=== PATIENT | female | born 1935 | race Caucasian/White ===

== ENCOUNTER → 2018-01-21 | Outpatient (CLI) | payer MEDICARE, OTHER ==
[~2018-01-21] MED LIST: ALBU90OI61 INH; ANORO ELLIPTA1 EACH INH; ASPI81CH PO; ATOR20 PO; AZELASTINE137 MCG/0.; AZELASTINE137 MCG/0. NS; CEPH500 PO; Cipro500 MG PO; ESTRTP VAG; FLUO20; GLIM4; GLIM4 PO; HYDR1TAB94 PO; Hydromet Syrup473 ML; INSULANI SUBQ; INSULANPEN SC; LORA.5 PO; LOSA25 PO; LOVA40; LOVA40 PO; METF500; METF500 PO; METO100ER PO; METO25ER PO; METO50ER; MYRBETRIQ25 MG PO; MYRBETRIQ50 MG PO; NITR100 PO; OXYB5 PO; PANT40 PO; PIOG15 PO; PRED10 PO; Prednisone20 MG PO; Prinivil10 MG PO; QVAR7.3 G1 INH; SULTRIDS PO; TRESIBA FL200 UNIT/1 SC; TRIHYD253A PO; ZOLP10; ZOLP10 PO
== END | disposition home or self-care (01) ==
LOC: LAB 12:00
DX: N39.0 Urinary tract infection, site not specified (principal)
CPT/HCPCS: 87077; 87086; 87186

== ENCOUNTER 2018-12-01 16:28 | Inpatient (IN) | payer MEDICARE, OTHER ==
[~2018-12-01] VITALS: Ht 157.5 cm; Wt 64.5 kg
[~2018-12-01 16:28] MED LIST changes: -LOVA40 PO; +Lovastatin20 MG PO
[2018-12-01 17:47] LABS: BASOPHILS ABSOLUTE AUTO 0.06 K/mm3 (0.00-0.23); BASOPHILS PERCENT AUTO 0 % (0-2); EOSINOPHILS ABSOLUTE AUTO 0.11 K/mm3 (0.00-0.68); EOSINOPHILS PERCENT AUTO 1 % (0-6); Hematocrit 18.8 % (33.0-51.0); IMMATURE GRAN ABSOLUTE AUTO 0.27 K/mm3 (0.00-0.10); IMMATURE GRAN PERCENT AUTO 1 % (0-1); LYMPHOCYTES ABSOLUTE AUTO 2.58 K/mm3 (0.84-5.20); LYMPHOCYTES PERCENT AUTO 13 % (21-46); MONOCYTES PERCENT AUTO 6 % (4-13); Mean Corpuscular HGB 31.5 pg (26.0-34.0); Mean Corpuscular HGB Conc 29.8 g/dL (31.5-36.5); Mean Corpuscular Volume 106 fL (80-100); Mean Platelet Volume 10.4 fL (9.1-12.4); NEUTROPHILS ABSOLUTE AUTO 15.45 K/mm3 (1.96-9.15); NEUTROPHILS PERCENT AUTO 79 % (41-73); NRBC ABSOLUTE 0.06 K/mm3 (0.00-0.02); NRBC Auto 0.3 /100 WBC (0.0-0.2); Platelet Count 265 K/mm3 (150-400); RDW Standard Deviation 54.2 fL (35.1-46.3); Red Blood Cell Count 1.78 M/mm3 (3.80-5.20); White Blood Cell Count 19.67 K/mm3 (4.00-11.30)
[2018-12-01 17:50] LABS: Hemoglobin 5.6 g/dL (11.5-16.0)
[2018-12-01 18:17] LABS: Albumin, Blood 3.4 g/dL (3.4-5.0); Albumin/Globulin Ratio 0.9 (0.8-1.8); Bilirubin, Total 0.3 mg/dL (0.1-1.0); Bun/Creatinine Ratio 42.1 (12.0-20.0); Calcium, Blood 8.5 mg/dL (8.5-10.1); Creatinine, Blood 0.97 mg/dL (0.40-1.00); Globulin, Blood 3.6 g/dL (2.2-4.0); Potassium, Blood 4.6 mmol/L (3.5-5.5)
[2018-12-01 18:42] LABS: Influenza A Negative (NEGATIVE); Influenza B Negative (NEGATIVE)
[2018-12-01 18:57] LABS: International Normalized Ratio 1.19; Prothrombin Time Results 12.4 Sec (9.7-11.5)
[2018-12-01] MEDS ORDERED: Glucophage Xr750 MG PO (19:51)
[2018-12-01] MEDS ORDERED: METO50ER PO (19:53)
[2018-12-01] MEDS ORDERED: MEMA10 PO (19:57)
[2018-12-01] MEDS ORDERED: ANORO ELLIPTA1 EACH INH (20:00)
[2018-12-01] MEDS ORDERED: ZOLP10 PO (20:04)
[2018-12-01] MEDS ORDERED: Pantoprazole So40 MG PO (20:04)
--- NOTE | 2018-12-01 21:05 | NUR ---
ADMIT PT ARRIVES FROM ER WITH VANCO AND FIRST UNIT OF PRBC'S INFUSING. PT IS ALERT TO ALL BUT DATE BUT IS VERY FORGETFUL AND REPEATS QUESTIONS. A SMALL AMOUNT OF BLACK TARRY STOOL NOTED IN ATTENDS. PER MEASURER, ST DEPRESSION NOTED ON ECG, DR MERAZ AWARE-THIS REMAINS ON ECG IN LEADS II, III AND AVF. PT DENIES ANY PAIN AND ONLY COMPLAINT IS OF THIRST. SBP IN THE 90'S, MAP >60 AND O2 SATS 100% ON 4L/NC DROPPED TO 1L. PLAN TO TRANSFUSE #2 PRBC AND INITIATE ADMIT ORDERS. PT WILL BE NPO AT MIDNIGHT FOR UPPER ENDOSCOPY TOMORROW WITH DR LEI.
[2018-12-01 23:33] LABS: Source, Urine Catheter
[2018-12-01 23:37] LABS: Bilirubin, Urine Neg (Neg); Blood, Urine 1+ (Neg); Glucose Qualitative, Urine Neg (Neg); Ketones, Urine 1+ (Neg); Leukocyte Esterase, Urine 2+ (Neg); Nitrite, Urine Pos (Neg); Protein, Urine 1+ (Neg); Urobilinogen, Urine NORM (Normal)
[2018-12-01 23:40] LABS: Appearance, Urine Clear (Clear); Color, Urine Yellow (P-Yellow)
[2018-12-01 23:44] LABS: Amorphous Light ({null, 0-Heavy}); Bacteria Mod /hpf; Red Blood Cells, Urine 0-2 /hpf (0-2); Squamous Epithelial Cells Not Seen /hpf (Few); White Blood Cells, Urine 25-50 /hpf (0-5)
[2018-12-02 03:40] LABS: BASOPHILS ABSOLUTE AUTO 0.04 K/mm3 (0.00-0.23); BASOPHILS PERCENT AUTO 0 % (0-2); EOSINOPHILS ABSOLUTE AUTO 0.02 K/mm3 (0.00-0.68); EOSINOPHILS PERCENT AUTO 0 % (0-6); Hematocrit 21.7 % (33.0-51.0); Hemoglobin 7.1 g/dL (11.5-16.0); IMMATURE GRAN ABSOLUTE AUTO 0.15 K/mm3 (0.00-0.10); IMMATURE GRAN PERCENT AUTO 1 % (0-1); LYMPHOCYTES ABSOLUTE AUTO 1.97 K/mm3 (0.84-5.20); LYMPHOCYTES PERCENT AUTO 14 % (21-46); MONOCYTES ABSOLUTE AUTO 1.51 K/mm3 (0.16-1.47); MONOCYTES PERCENT AUTO 11 % (4-13); Mean Corpuscular HGB 29.3 pg (26.0-34.0); Mean Corpuscular HGB Conc 32.7 g/dL (31.5-36.5); Mean Platelet Volume 9.8 fL (9.1-12.4); NEUTROPHILS PERCENT AUTO 74 % (41-73); NRBC ABSOLUTE 0.03 K/mm3 (0.00-0.02); NRBC Auto 0.2 /100 WBC (0.0-0.2); Platelet Count 192 K/mm3 (150-400); RDW Coefficient Variation 17.6 % (11.7-14.2); RDW Standard Deviation 52.1 fL (35.1-46.3); Red Blood Cell Count 2.42 M/mm3 (3.80-5.20); White Blood Cell Count 14.29 K/mm3 (4.00-11.30)
[2018-12-02 03:41] LABS: Mean Corpuscular Volume 90 fL (80-100)
[2018-12-02 04:01] LABS: Alanine Aminotransfer (ALT/SGP 12 U/L (12-78); Albumin, Blood 2.7 g/dL (3.4-5.0); Alk Phos 36 U/L (50-136); Anion Gap 8 mmol/L (6-16); Aspartate Aminotrans (AST/SGOT 14 U/L (12-37); Bilirubin, Total 1.1 mg/dL (0.1-1.0); Blood Urea Nitrogen 38 mg/dL (8-24); Bun/Creatinine Ratio 37.6 (12.0-20.0); CO2, Blood 25 mmol/L (21-32); Calcium, Blood 7.7 mg/dL (8.5-10.1); Chloride, Blood 108 mmol/L (98-108); Creatinine, Blood 1.01 mg/dL (0.40-1.00); Globulin, Blood 2.6 g/dL (2.2-4.0); Glomerular Filtration Rate 56 (60-); Glucose, Blood 176 mg/dL (70-99); Potassium, Blood 4.1 mmol/L (3.5-5.5); Sodium, Blood 141 mmol/L (136-145); Total Protein, Blood 5.3 g/dL (6.4-8.2); Vancomycin, Random 8.9 ug/mL
--- NOTE | 2018-12-02 04:54 | NUR ---
CALL TO DR RG LEMUS MD ON AM HGB/HCT AND CURRENT VITALS AND UOP. PER DR MERAZ, NO ADDITION BLOOD PRODUCTS AT THIS TIME D/T HX AORTIC STENOSIS AND ORDER OBTAINED TO RUN NS AT 100ML/HR INSTEAD OF 200ML/HR.
--- NOTE | 2018-12-02 06:22 | NUR ---
SHIFT SUMMARY NO ACUTE CHANGES OVERNIGHT. PT REMAINS ALERT TO SELF, LOCATION AND DATE BUT HAS POOR SHORT TERM MEMORY AND WILL REPEAT QUESTIONS. PT DENIES ALL COMPLAINTS AND REPORTS SHE FEELS MUCH BETTER NOW AND IS BEGINNING TO REMEBER SOME EVENTS LEADING UP TO ADMISSION. PROTONIX GTT AT 10ML/HR AND NS AT 100ML/HR. PT HAS HAD TWO SMALL BLACK/TARRY STOOLS FOR SHIFT. VSS, MAP'S 65-75 AND UOP AT 850ML FOR SHIFT. ECG REMAINS SINUS TACH AT 110. NPO STATUS HAS BEEN MAINTAINED SINCE 0000 D/T UNKNOWN EGD TIME LATER TODAY.
--- NOTE | 2018-12-02 08:33 | NUR ---
CARE ASSUMED CARE AND REPORT ASSUMED FROM DYLAN Miller RN. PT SLEEPING BUT EASILY AROUSABLE. DENIES PAIN AND NAUSEA AT THIS TIME. ATTENDS SECURED AND LOVE CATH SECURED AND PATENT. SIT, HR 100-120. MAP 60-65 AT THIS TIME. PT HAS INSPIRATORY AND EXP WHEEZES IN ALL LUNG GMABOA. BALJEET AWARE OF LUNG SOUNDS AND VS. MIV INFUSING AT 100 ML/HR AND IS TO CONTINUE. PROTONIX GTT INFUSING AT 10 ML/HR PER ORDER. PT TO RECIEVE ANOTHER UNIT PRBCS, TOTALING 3 UNITS. AFEBRILE. SPO2 96% ON RA; NO SIGNS OF RESP DISTRESS. PT TURNS SELF IN BED. NPO AT THIS TIME EXCEPT FEW SIPS WATER. WILL CONTINUE TO MONITOR.
--- NOTE | 2018-12-02 11:43 | NUR ---
REASSESSMENT PT RECEIVED 1 UNIT PRBCS SINCE PRIOR ASSESSMENT. WORKED WITH PT AND WAS ABLE TO AMBUALTE AROUND ROOM WITH WALKER. SINUSTACH, HR 100-120. BP STABLE. AFEBRILE. NS INFUSING AT 100 ML/HR PER ORDER. PROTONIX GTT INFUSING AT 10 ML/HR PER ORDER. DENIES PAIN AND NAUSEA AT THIS TIME. DAUGHTER AND BEDSIDE; FAMILY UPDATED ON PTS CURRENT TREATMENT PLAN AND PLAN FOR EGD AT 1230. RERE CONTINUE TO MONITOR.
[2018-12-02 12:43] LABS: BASOPHILS ABSOLUTE AUTO 0.09 K/mm3 (0.00-0.23); BASOPHILS PERCENT AUTO 1 % (0-2); EOSINOPHILS ABSOLUTE AUTO 0.13 K/mm3 (0.00-0.68); EOSINOPHILS PERCENT AUTO 1 % (0-6); Hematocrit 23.7 % (33.0-51.0); Hemoglobin 7.9 g/dL (11.5-16.0); IMMATURE GRAN ABSOLUTE AUTO 0.13 K/mm3 (0.00-0.10); IMMATURE GRAN PERCENT AUTO 1 % (0-1); LYMPHOCYTES ABSOLUTE AUTO 1.69 K/mm3 (0.84-5.20); LYMPHOCYTES PERCENT AUTO 14 % (21-46); MONOCYTES ABSOLUTE AUTO 1.17 K/mm3 (0.16-1.47); MONOCYTES PERCENT AUTO 10 % (4-13); Mean Corpuscular HGB 30.2 pg (26.0-34.0); Mean Corpuscular HGB Conc 33.3 g/dL (31.5-36.5); Mean Corpuscular Volume 91 fL (80-100); Mean Platelet Volume 9.6 fL (9.1-12.4); NEUTROPHILS ABSOLUTE AUTO 9.05 K/mm3 (1.96-9.15); NEUTROPHILS PERCENT AUTO 74 % (41-73); NRBC ABSOLUTE 0.04 K/mm3 (0.00-0.02); NRBC Auto 0.3 /100 WBC (0.0-0.2); Platelet Count 193 K/mm3 (150-400); RDW Coefficient Variation 17.6 % (11.7-14.2); RDW Standard Deviation 52.2 fL (35.1-46.3); Red Blood Cell Count 2.62 M/mm3 (3.80-5.20); White Blood Cell Count 12.26 K/mm3 (4.00-11.30)
--- NOTE | 2018-12-02 13:01 | NUR ---
12/02/18 1301 Joslyn Gillespie MAC CASE WITH DR. CATES IN ICU 10.SEE ANETHESIA RECORED FOR CARE.
--- NOTE | 2018-12-02 16:25 | NUR ---
REASSESSMENT PT A/O X3 WITH SOME SHORT TERM MEMORY LOSS. VSS. SIT, HR 100-110. DENIES PAIN. PT HAD BLACK, TARRY STOOL IN BRIEF; INCONTINENT. RECEIVED BEDBATH, LINEN CHANGE, BREIF CHANGE AND SKIN CARE. LOVE CARE REMAINS SECURED AND PATENT. PT ABLE TO STAND AT BEDSIDE AND AMBULATE IN ROOM IF NEEDED. REFUSED TO WEAR SCDS AT THIS TIME; WILL GIVE A BREAK. LUNG SOUNDS WHEEZY THROUGHOUT. PT TOLERATING CLEAR LIQUIDS WITH NO NAUSEA. WILL CONTINUE TO MONITOR.
--- NOTE | 2018-12-02 17:53 | NUR ---
SHIFT SUMMARY PT HAD BUSY DAY. WORKED WITH PT AND OT AND WAS COOPERATIVE AND NEEDED MINIMAL ASSIST. UPPER ENDOSCOPY COMPLETED AT 1300 AND PT TOELRATED WELL. FAMILY BEDSIDE MIDDAY. PT RECEIVED BEDBATH AND LINEN CHANGE IN AFTERNOON. NO NAP THROUGHOUT SHIFT. SINUSTACH, HR 100-115 ENITRE SHIFT WITH STABLE BP. AFEBRILE ENTIRE SHIFT. PROTONIX GTT INFUSED AT 10 ML/HR PER ORDER. 1 INCONTINENT BRIEF WITH BLACK TARRY STOOL. WILL GIVE BEDSIDE, HANDOFF REPORT TO STEPHEN RN.
--- NOTE | 2018-12-02 19:49 | NUR ---
ASSUMED CARE PT SITTING UP IN BED WATCHING TV WITH ONLY COMPLAINT OF FEELING HUNGRY. PT S/P EGD TODAY WITH CLIP-CLEAR LIQUID DIET TONIGHT. PT IS ALERT TO SELF, LOCATION AND YEAR BUT HAS POOR SHORT TERM MEMORY. PROTONIX GTT CONTINUES AT 10ML/HR AND NS TKO.
[2018-12-02 20:17] LABS: Hematocrit 23.1 % (33.0-51.0); Hemoglobin 7.7 g/dL (11.5-16.0)
[2018-12-03 03:43] LABS: BASOPHILS ABSOLUTE AUTO 0.04 K/mm3 (0.00-0.23); BASOPHILS PERCENT AUTO 0 % (0-2); EOSINOPHILS ABSOLUTE AUTO 0.16 K/mm3 (0.00-0.68); EOSINOPHILS PERCENT AUTO 1 % (0-6); Hematocrit 21.3 % (33.0-51.0); IMMATURE GRAN ABSOLUTE AUTO 0.09 K/mm3 (0.00-0.10); IMMATURE GRAN PERCENT AUTO 1 % (0-1); LYMPHOCYTES ABSOLUTE AUTO 1.31 K/mm3 (0.84-5.20); LYMPHOCYTES PERCENT AUTO 12 % (21-46); MONOCYTES ABSOLUTE AUTO 1.12 K/mm3 (0.16-1.47); MONOCYTES PERCENT AUTO 10 % (4-13); Mean Corpuscular HGB 30.2 pg (26.0-34.0); Mean Corpuscular HGB Conc 32.9 g/dL (31.5-36.5); Mean Corpuscular Volume 92 fL (80-100); Mean Platelet Volume 9.7 fL (9.1-12.4); NEUTROPHILS PERCENT AUTO 76 % (41-73); NRBC ABSOLUTE 0.03 K/mm3 (0.00-0.02); NRBC Auto 0.3 /100 WBC (0.0-0.2); Platelet Count 168 K/mm3 (150-400); RDW Coefficient Variation 18.2 % (11.7-14.2); RDW Standard Deviation 53.1 fL (35.1-46.3); Red Blood Cell Count 2.32 M/mm3 (3.80-5.20); White Blood Cell Count 11.42 K/mm3 (4.00-11.30)
[2018-12-03 04:04] LABS: Albumin, Blood 2.7 g/dL (3.4-5.0); Anion Gap 7 mmol/L (6-16); Blood Urea Nitrogen 22 mg/dL (8-24); Bun/Creatinine Ratio 24.6 (12.0-20.0); CO2, Blood 26 mmol/L (21-32); Calcium, Blood 7.6 mg/dL (8.5-10.1); Chloride, Blood 109 mmol/L (98-108); Glomerular Filtration Rate >60 (60-); Glucose, Blood 155 mg/dL (70-99); Potassium, Blood 3.4 mmol/L (3.5-5.5); Sodium, Blood 142 mmol/L (136-145); Vancomycin, Random 6.8 ug/mL
--- NOTE | 2018-12-03 06:00 | NUR ---
CALL TO DR KT HIRSCH UPDATED ON AM HGB AND DOWNWARD TREND, VS AND NUMBER OF TARRY STOOLS. PER DR MERAZ OK PASS ON TO AM RN AND THEN TO DR DELONG THIS AM. ORDER OBTAINED TO RECHECK H&H AT 1100.
--- NOTE | 2018-12-03 06:19 | NUR ---
SHIFT SUMMARY SEE PREVIOUS NOTES FOR SHIFT. PT WAS ANXIOUS YESTERDAY PM BUT REPORTS SHE IS NO LONGER ANXIOUS AFTER SHE HAS BEEN ABLE TO SLEEP. PT HAS HAD ONE MEDIUM AND ONE SMEAR OF BLACK TARRY STOOL FOR SHIFT. LUNG SOUNDS HAVE REMAINED WHEEZ T/O SHIFT BUT NO RALES; O2 VIA NC APPLIED AT HS FOR DESATURATIONS AT 1/NC BUT HAS BEEN OFF SINCE 0300 D/T O2 SATS >98%. PROTONIX AT 10ML/HR AND NS TKO ON STANDBY. PLAN TO REPORT OFF AM HGB TO AM RN SO AM HOSPITALIST CAN MAKE DETERMINATION IF PT REQUIRES ADDITIONAL BLOOD PRODUCTS.
--- NOTE | 2018-12-03 08:15 | NUR ---
CARE ASSUMED PT SLEEPING BUT EASILY AROUSABLE. WHEN AWAKENED FOR ASSESSMENT, PT STATES SHE WANTS TO SLEEP. DENIES PAIN AT THIS TIME. VSS. AFEBRILE. SIT, HR 105-115. TURNS SELF IN BED. STARTING POTASSIUM REPLACEMENT INFUSION BUT PT C/O BURNING AND REFUSED TO CONTINUE INFUSION EVEN WITH NS DILUTION. BALJEET AWARE AND V.O. TO DISCUSS ORAL REPLACEMENT WITH MD LEI. DENIES NAUSEA. ATE FEW BITES OF BREAKFAST AND IS NOW BACK TO SLEEP. LUNG SOUNDS WHEEZY THROUGHOUT. WILL CONTINUE TO MONITOR.
--- NOTE | 2018-12-03 11:57 | NUR ---
REASSESSMENT PT RECEIVED BEDBATH AND LINEN CHANGE. TOLERATED OT THIS AM. BEDSIDE AND UPDATED ON PT STATUS AND TREATMENT PLAN. VSS. BP WNL. SPO2 96% ON RA BUT LUNG SOUNDS REMAIN WHEEZY THROUGHOUT. PT RECIEVING 1/2 UNITS PRBCS AT THIS TIME. CONTINUALLY STATING SHE IS HUNGRY. DENIES NAUSEA AND NO EPISODES OF VOMITING. WILL CONTINUE TO MONITOR.
[2018-12-03 15:06] LABS: Hematocrit 29.7 % (33.0-51.0); Hemoglobin 9.9 g/dL (11.5-16.0)
--- NOTE | 2018-12-03 18:37 | NUR ---
SHIFT SUMMARY PT RECEIVED 2 UNITS PRBCS WITH IMPROVEMENT IN HGB. DENIED PAIN DURING SHIFT. SINUSTACH, HR 100-120 ENTIRE SHIFT WITH STABLE BP. AFEBRILE. PT UP TO TOILET MULTIPLE TIMES WITH MINIMAL ASSIST. WORKED WITH PT AND OT DURING SHIFT. PT BECOMES SHORT OF BREATH VERY EASILY. AT ONE POINT DURING AFTERNOON, PT BECAME AGITATED AND RESTLESS, ATEMPTING TO GET OUT OF BED AND STATING SHE WAS MISERABLE BUT COULD NOT CONCLUDE A SPECIFIC PROBLEM. ATIVAN ORDER OBTAINED FROM MD BUT NOT GIVEN AT THIS TIME. HAD 4-5 SMEARED BREIFS OF INCONTINENT BLACK, TARRY STOOL. WILL GIVE BEDSIDE, HANDOFF REPORT TO NOC RN.
--- NOTE | 2018-12-03 19:30 | NUR ---
ASSUMED CARE PT SITTING UPRIGHT IN BED, STATING "I'M JUST MISERABLE," BUT CANNOT ELABORATE TO WHY SHE IS FEELING MISERABLE. DENIES ALL PAIN BUT IS REPORTING HUNGER. FULL LIQUID SNACK GIVEN, BACK RUBBED AND PT REPOSITIONED. PROTONIX CONTINUES AT 10ML/HR AND PT HAS CONTINUED TO HAVE FREQUENT SMALL AMOUNTS OF MELENA FOR DAY SHIFT. ECG SHOWS ST 110-120, O2 SATS 95% ON RA. PLAN TO OFFER PM CARE AND PROMOTE SLEEP OVERNIGHT.
[2018-12-04 03:33] LABS: BASOPHILS ABSOLUTE AUTO 0.05 K/mm3 (0.00-0.23); BASOPHILS PERCENT AUTO 1 % (0-2); EOSINOPHILS ABSOLUTE AUTO 0.18 K/mm3 (0.00-0.68); EOSINOPHILS PERCENT AUTO 2 % (0-6); Hematocrit 29.4 % (33.0-51.0); Hemoglobin 9.8 g/dL (11.5-16.0); IMMATURE GRAN ABSOLUTE AUTO 0.05 K/mm3 (0.00-0.10); IMMATURE GRAN PERCENT AUTO 1 % (0-1); LYMPHOCYTES PERCENT AUTO 10 % (21-46); MONOCYTES ABSOLUTE AUTO 1.18 K/mm3 (0.16-1.47); MONOCYTES PERCENT AUTO 11 % (4-13); Mean Corpuscular HGB 30.9 pg (26.0-34.0); Mean Corpuscular HGB Conc 33.3 g/dL (31.5-36.5); Mean Corpuscular Volume 93 fL (80-100); Mean Platelet Volume 9.5 fL (9.1-12.4); NEUTROPHILS ABSOLUTE AUTO 8.24 K/mm3 (1.96-9.15); NEUTROPHILS PERCENT AUTO 76 % (41-73); NRBC ABSOLUTE 0.03 K/mm3 (0.00-0.02); NRBC Auto 0.3 /100 WBC (0.0-0.2); Platelet Count 168 K/mm3 (150-400); RDW Coefficient Variation 17.9 % (11.7-14.2); RDW Standard Deviation 51.6 fL (35.1-46.3); Red Blood Cell Count 3.17 M/mm3 (3.80-5.20)
[2018-12-04 03:50] LABS: Albumin, Blood 2.8 g/dL (3.4-5.0); Anion Gap 8 mmol/L (6-16); Blood Urea Nitrogen 10 mg/dL (8-24); Bun/Creatinine Ratio 11.7 (12.0-20.0); CO2, Blood 26 mmol/L (21-32); Calcium, Blood 7.9 mg/dL (8.5-10.1); Chloride, Blood 107 mmol/L (98-108); Creatinine, Blood 0.85 mg/dL (0.40-1.00); Glomerular Filtration Rate >60 (60-); Glucose, Blood 235 mg/dL (70-99); Phosphorus, Blood 3.2 mg/dL (2.5-4.9); Potassium, Blood 3.7 mmol/L (3.5-5.5); Sodium, Blood 141 mmol/L (136-145)
[2018-12-04] MEDS ORDERED: QVAR REDIHALE10.6 G1 INH (05:06)
[2018-12-04] MEDS ORDERED: ANORO ELLIPTA1 EACH INH (05:07)
[2018-12-04] MEDS ORDERED: Novolog100 UNIT/2 SC (05:09)
[2018-12-04] MEDS ORDERED: DICLO GEL1 EACH TOP (05:12)
--- NOTE | 2018-12-04 06:34 | NUR ---
SHIFT SUMMARY NO ACUTE EVENTS OVERNIGHT. PT HAD ONE SMALL SMEAR OF DARK, TARRY STOOLS THIS SHIFT AND AM H&H STABLE. PT WAS ANXIOUS LAST NIGHT AND DID NOT FALL ASLEEP UNTIL O300 BUT DOES WAKE UP AND CALL OUT FOR HELP TO GET UP TO BATHROOM. PROTONIX AT 10ML/HR, VSS, WITH OCCASIONAL O2 SAT DROPS WITH SLEEP BUT DROPS ARE VERY SHORT LIVED. VSS, EKG SHOWS ST 100-120.
--- NOTE | 2018-12-04 08:15 | NUR ---
ASSESSMENT- PT AWAKENED TO NAME. ORIENTED, COOPERATIVE, ANSWERS QUESTIONS APPROPRIATELY. STANDBY ASSIST TO TOILET WITHOUT PROBLEMS. VSS. NO S/S BLEEDING. NO N/S. TAKING FULL LIQUIDS. BLODD SUGAR ELEVATED, COVERAGE GIVEN. DR. DELONG HERE-ASSESSED PT. PT DENIES ANY PAIN. SITTING UP AT EDGE OF BED EATING. REVIEWED FALL PRECAUTIONS, STATES UNDERSTANDING. PROTONIX GTT AT 10 CC/HR. PIV X 2 INTACT.
--- NOTE | 2018-12-04 11:00 | NUR ---
PT TO TRANSFER TO [facility]. REPORT GIVEN. PROTONIX GTT D/C. PT DENIES COMPLAINTS. UPDATE TO PT FAMILY. NO S/S BLEEING.
[2018-12-04 13:26] LABS: Hematocrit 33.5 % (33.0-51.0); Hemoglobin 10.9 g/dL (11.5-16.0)
--- NOTE | 2018-12-04 17:59 | NUR ---
SHIFT SUMMARY PT WAS ICU XFER THIS SHIFT, NO ACUTE CHANGES SINCE ASSUMING CARE, NO COMPLAINTS OF ANY KIND. FAMILY SPENT MOST OF AFTERNOON AT BEDSIDE, PATIENT SEEMED MORE CONFUSED AFTER SPOUSE LEFT FOR THE NIGHT. BED ALARM IS ON, PT EATING DINNER AT THIS TIME, WILL CONT TO MONITOR UNTIL REPORT GIVEN TO NOC RN.
--- NOTE | 2018-12-04 20:17 | NUR ---
PATIENT ACTIVATED BED ALARM X TWO. PATIENT REMINDED TO USE CALL LIGHT AND REPORTS. SHE FORGOT. PATIENT EDUCATED MASONRY SUPERVISOR LIGHT AND BACK INTO BED. CALL LIGHT IN REACH.
--- NOTE | 2018-12-04 20:18 | NUR ---
PATIENT DID NOT USE BATHROOM CALL LIGHT WHEN ASKED. PATIENT AGAIN REPORTS SHE FORGOT TO USE IT WHEN ASKED. PATIENT BACK INTO BED. RT PRESENT FOR A BREATHING TX. CALL LIGHT IN REACH. BED ALARM ACTIVATED.
--- NOTE | 2018-12-04 20:21 | NUR ---
RT REPORTS WILL PUT PATIENT ON 2L O2 NC AND WAS STATING 83% WHEN BACK FROM BATH ROOM. RT WILL ADJUST NEEDED. CALL LIGHT IN REACH.
--- NOTE | 2018-12-05 04:08 | NUR ---
SHIFT SUMMARY PATIENT HAD NO ACUTE CHANGES OBSERVED THIS SHIFT. RT PUT PATIENT ON 2L O2 NC AFTER DESTATING BACK FROM BATHROOM WITH RT IN ROOM. PATIENT IS AXOX 3 WITH HX ALZHEIMER. POOR SHORT TERM MEMORY. PATIENT ACTIVATED BED ALARM X 4 AND DID NOT REMEMBER BEING TOLD TO USE CALL LIGHT SYSTEM. PATIENT ANXIOUS AND REPORTED WANTING TO GO HOME. REPORTED HEADACHE AND NEEDING A MED FOR SLEEP. TYLENOL AND MELATONIN GIVEN PER EMAR. PATIENT TOMPKINS REDUCED AND ABLE TO SLEEP. CBG 251. TWO PIV REMAIN INTACT. [employer] REPAIR TEACHER REPORTS ST 116. VSS/AFEBRILE. DENIES SOB AND N/V. CALL LIGHT IN REACH. BED IN LOWEST POSITION. WILL CONTINUE TO MONITOR UNTIL DAY SHIFT NURSE ASSUMES CARE.
[2018-12-05 05:28] LABS: BASOPHILS ABSOLUTE AUTO 0.05 K/mm3 (0.00-0.23); BASOPHILS PERCENT AUTO 1 % (0-2); EOSINOPHILS ABSOLUTE AUTO 0.22 K/mm3 (0.00-0.68); EOSINOPHILS PERCENT AUTO 2 % (0-6); Hematocrit 32.2 % (33.0-51.0); Hemoglobin 10.3 g/dL (11.5-16.0); IMMATURE GRAN ABSOLUTE AUTO 0.04 K/mm3 (0.00-0.10); IMMATURE GRAN PERCENT AUTO 0 % (0-1); LYMPHOCYTES ABSOLUTE AUTO 0.97 K/mm3 (0.84-5.20); LYMPHOCYTES PERCENT AUTO 10 % (21-46); MONOCYTES ABSOLUTE AUTO 0.96 K/mm3 (0.16-1.47); MONOCYTES PERCENT AUTO 10 % (4-13); Mean Corpuscular Volume 94 fL (80-100); Mean Platelet Volume 9.6 fL (9.1-12.4); NEUTROPHILS ABSOLUTE AUTO 7.53 K/mm3 (1.96-9.15); NEUTROPHILS PERCENT AUTO 77 % (41-73); Platelet Count 186 K/mm3 (150-400); RDW Coefficient Variation 18.7 % (11.7-14.2); RDW Standard Deviation 53.9 fL (35.1-46.3); Red Blood Cell Count 3.43 M/mm3 (3.80-5.20); White Blood Cell Count 9.77 K/mm3 (4.00-11.30)
[2018-12-05 05:57] LABS: Albumin, Blood 2.8 g/dL (3.4-5.0); Anion Gap 8 mmol/L (6-16); Blood Urea Nitrogen 12 mg/dL (8-24); Bun/Creatinine Ratio 12.9 (12.0-20.0); CO2, Blood 27 mmol/L (21-32); Calcium, Blood 8.4 mg/dL (8.5-10.1); Chloride, Blood 107 mmol/L (98-108); Creatinine, Blood 0.93 mg/dL (0.40-1.00); Glomerular Filtration Rate >60 (60-); Glucose, Blood 173 mg/dL (70-99); Phosphorus, Blood 3.7 mg/dL (2.5-4.9); Potassium, Blood 3.5 mmol/L (3.5-5.5); Sodium, Blood 142 mmol/L (136-145)
--- NOTE | 2018-12-05 06:28 | NUR ---
PATIENT NOW USING CALL LIGHT OVER 80% OF TIME. SHE WAS NON-COMPLIANT FIRST HALF OF SHIFT. BED ALARM STILL ACTIVATED. WILL CONTINUE TO MONITOR.
[2018-12-05] MEDS ORDERED: MELA3 PO (15:56)
[2018-12-05] MEDS ORDERED: MEMA10 PO (15:57)
[2018-12-05] MEDS ORDERED: ALBU2.5V5 NEB (17:13)
--- NOTE | 2018-12-05 17:42 | NUR ---
1730 PT DISCHARGED HOME VIA PERSONAL VEHICLE ACCOMPANIED AND DRIVEN BY . PT ESCORTED TO FACILITY ENTRANCE BY THIS RN VIA W/C. IV'S REMOVED. D/C PAPERWORK REVIEWED WITH PT AND SPOUSE, THEY ACKNOWLEDGED UNDERSTANDING. NEW RX FAXED TO [facility] ON [address] PER PT REQUEST. NO NEW CHANGES.
== END 2018-12-05 17:33 | disposition home or self-care (01) | DRG 377 ==
LOC: ER 16:28 → ICUW 20:01 → MEDS 12-04 11:03
PROVIDERS: Emergency Medicine; Family Medicine; Hospitalist; Internal Medicine Gastroenterology; Physician Assistant; ADMIT Internal Medicine
PROC: 30233N1 Transfusion of Nonautologous Red Blood Cells into Peripheral Vein, Percutaneous Approach (ICD-10-PCS; 2018-12-02)
PROC: 0W3P8ZZ Control Bleeding in Gastrointestinal Tract, Via Natural or Artificial Opening Endoscopic (ICD-10-PCS; principal; 2018-12-02 12:30)
DX: K31.811 Angiodysplasia of stomach and duodenum with bleeding (principal); R57.8 Other shock; E87.1 Hypo-osmolality and hyponatremia; D62 Acute posthemorrhagic anemia; J44.1 Chronic obstructive pulmonary disease with (acute) exacerbation; Z85.118 Personal history of other malignant neoplasm of bronchus and lung; Z79.4 Long term (current) use of insulin; I48.0 Paroxysmal atrial fibrillation; G47.00 Insomnia, unspecified; I35.0 Nonrheumatic aortic (valve) stenosis; N18.3 Chronic kidney disease, stage 3 (moderate); E86.0 Dehydration; E11.22 Type 2 diabetes mellitus with diabetic chronic kidney disease; E87.6 Hypokalemia; F17.210 Nicotine dependence, cigarettes, uncomplicated; G30.9 Alzheimer's disease, unspecified; F02.80 Dementia in other diseases classified elsewhere, unspecified severity, without behavioral disturbance, psychotic disturbance, mood disturbance, and anxiety; I12.9 Hypertensive chronic kidney disease with stage 1 through stage 4 chronic kidney disease, or unspecified chronic kidney disease
CPT/HCPCS: 36415; 36430; 51702; 71046; 76705; 80053; 80069; 80202; 81001; 82947; 83605; 84145; 85014; 85018; 85025; 85610; 86850; 86900; 86901; 86923; 87040; 87086; 87804; 93005; 93010; 94640; 94760; 94761; 96361; 96365; 96366; 96367; 96375; 97110; 97162; 97165; 97530; 97535; 99285-25; C9113; J0692; J0713; J3370; J3480; J7030; J7050; J7120; P9016

== ENCOUNTER 2019-02-14 10:27 | Inpatient (IN) | payer MEDICARE, OTHER ==
[~2019-02-14] VITALS: Ht 157.5 cm; Wt 69.9 kg
[~2019-02-14 10:27] MED LIST changes: +ALBU2.5V5 NEB; +DICLO GEL1 EACH TOP; +Glucophage Xr750 MG PO; +MEMA10 PO; +METO50ER PO; +Novolog100 UNIT/2 SC; +Pantoprazole So40 MG PO; +QVAR REDIHALE10.6 G1 INH
[2019-02-14 11:32] LABS: BASOPHILS ABSOLUTE AUTO 0.08 K/mm3 (0.00-0.23); BASOPHILS PERCENT AUTO 1 % (0-2); EOSINOPHILS ABSOLUTE AUTO 0.34 K/mm3 (0.00-0.68); EOSINOPHILS PERCENT AUTO 3 % (0-6); Hematocrit 25.7 % (33.0-51.0); IMMATURE GRAN PERCENT AUTO 1 % (0-1); LYMPHOCYTES ABSOLUTE AUTO 1.54 K/mm3 (0.84-5.20); LYMPHOCYTES PERCENT AUTO 12 % (21-46); MONOCYTES ABSOLUTE AUTO 0.89 K/mm3 (0.16-1.47); MONOCYTES PERCENT AUTO 7 % (4-13); Mean Corpuscular HGB 29.3 pg (26.0-34.0); Mean Corpuscular HGB Conc 31.1 g/dL (31.5-36.5); Mean Corpuscular Volume 94 fL (80-100); Mean Platelet Volume 9.9 fL (9.1-12.4); NEUTROPHILS ABSOLUTE AUTO 10.04 K/mm3 (1.96-9.15); NEUTROPHILS PERCENT AUTO 77 % (41-73); Platelet Count 277 K/mm3 (150-400); RDW Coefficient Variation 15.7 % (11.7-14.2); Red Blood Cell Count 2.73 M/mm3 (3.80-5.20); White Blood Cell Count 12.99 K/mm3 (4.00-11.30)
[2019-02-14 11:47] LABS: International Normalized Ratio 1.03; Prothrombin Time Results 10.9 Sec (9.7-11.5)
[2019-02-14 11:56] LABS: Alanine Aminotransfer (ALT/SGP 17 U/L (12-78); Albumin, Blood 3.5 g/dL (3.4-5.0); Albumin/Globulin Ratio 0.9 (0.8-1.8); Alk Phos 70 U/L (50-136); Anion Gap 10 mmol/L (6-16); Aspartate Aminotrans (AST/SGOT 16 U/L (12-37); Bilirubin, Total 0.2 mg/dL (0.1-1.0); Blood Urea Nitrogen 44 mg/dL (8-24); Bun/Creatinine Ratio 47.4 (12.0-20.0); CO2, Blood 23 mmol/L (21-32); Chloride, Blood 103 mmol/L (98-108); Creatinine, Blood 0.93 mg/dL (0.40-1.00); Globulin, Blood 3.7 g/dL (2.2-4.0); Glomerular Filtration Rate >60 (60-); Glucose, Blood 306 mg/dL (70-99); Magnesium, Blood 1.9 mg/dL (1.6-2.4); Potassium, Blood 4.3 mmol/L (3.5-5.5); Sodium, Blood 136 mmol/L (136-145); Total Protein, Blood 7.2 g/dL (6.4-8.2)
[2019-02-14] MEDS ORDERED: Mirtazapine7.5 MG PO (12:03)
[2019-02-14] MEDS ORDERED: ACET500 PO (12:05)
[2019-02-14] MEDS ORDERED: LOSA25 PO (12:05)
[2019-02-14] MEDS ORDERED: Dyazide 37.5-21 EACH PO (12:05)
[2019-02-14 14:51] LABS: Hematocrit 20.7 % (33.0-51.0); Hemoglobin 6.5 g/dL (11.5-16.0)
[2019-02-14] MEDS ORDERED: ALBU2.5V5 NEB (15:02)
[2019-02-14] MEDS ORDERED: ALBU90OI61 INH (15:05)
[2019-02-14] MEDS ORDERED: DICLOFENAC SOD100 G1 TOP (15:06)
[2019-02-14] MEDS ORDERED: MELA3 PO (15:07)
--- NOTE | 2019-02-14 16:17 | NUR ---
GI TEAM: GI TEAM IN ROOM AT THIS TIME SETTING UP FOR SCOPE.
--- NOTE | 2019-02-14 16:41 | NUR ---
02/14/[address] [facility] SHEILA PEREIRA
--- NOTE | 2019-02-14 17:06 | NUR ---
COMPLETE UPPER: DR BROWN STATES NOTED ACTIVE BLEEDING IN DUODENUM. CONTINUES TO STATE IF SHE CONTINUES TO SMOKE IT WILL NEVER HEAL. DR OUT TO TALK WITH . TEAM IN ROOM CLEANING UP.
--- NOTE | 2019-02-14 18:03 | NUR ---
COUGH & NAUSEA: PT IS COUGHING FREQUENTLY AND VERY FORCEFULLY. PT RECEIVED A ONE TIME BREATHING TREATMENT PER DR BROWN. AFTER BREATHING TREATMENT PT CONTINUES TO BE COUGHING QUITE A BIT. PT FEELING NAUSEOUS AND VOMITS APPROX 50ML. PT C/O BACK PAIN UNABLE TO GIVE PRN TYLONEL AT THIS TIME D/T N/V. CALL OUT TO DR GUY AT THIS TIME, BUT UNABLE TO REACH HER.
[2019-02-14 18:25] LABS: Hematocrit 23.6 % (33.0-51.0); Hemoglobin 7.7 g/dL (11.5-16.0)
--- NOTE | 2019-02-14 21:32 | NUR ---
DR. MOORE NOTIFIED: PT WITH CONTINUE COUGH AND EXP WHEEZE INCREASING SOB. PT STATES IS MORE FROM HER LUNGS THAN A SCRATCHY THROAT. I&O +[phone]. DR. MOORE PLACING ORDERS.
[2019-02-14 21:49] LABS: Hematocrit 25.6 % (33.0-51.0); Hemoglobin 8.4 g/dL (11.5-16.0)
--- NOTE | 2019-02-14 23:51 | NUR ---
SOB/COUGH IMPROVED: START OF SHIFT PT WITH CONSTANT COUGH. PT AT THAT TIME WAS ON O2 2L VIA N/C SATS 97-98% WHICH WAS REMOVED AT APPRX 2014 FOR POSSIBLE OVER-OXYGENATION. PT LS WITH AUDIBLE EXP WHEEZE AT THAT TIME WITH PT C/O SOB. HOSPITALIST NOTIFIED WITH NEW ORDERS GIVEN. WITH PT IMPROVED AFTER O2 REMOVED AND TESSELON PERLES GIVEN, PT WITH IMPROVED LS AND ONLY OCCASIONAL COUGH WHEN PT AWAKE. PT CURRENTLY SLEEPING WITH SATS 92-95% ON RA. PT UP TO BSC X1 WITH 300 URINE OUT. PT SLIGHTLY HYPOTENSIVE AND WITH THE ABOVE MENTIONED AND BNP 171, LASIX 40mg IVP NOT GIVEN. PT CURRENTLY SLEEPING AND APPEARS COMFORTABLE. WILL CONTINUE TO MONITOR.
--- NOTE | 2019-02-15 01:11 | NUR ---
PT AWAKENS EASILY WHEN NURSE AT BEDSIDE. PT WITH NO COMPLAINTS. LS SLIGHTLY COARSE WITH SCATTERED SQUEEK-NO EXP WHEEZE NOTED. PT MORE RELAXED AND CALM AND IS SLEEPING WELL. VSS. CALL LIGHT WITHIN REACH. WILL CONTINUE TO MONITOR.
[2019-02-15 03:23] LABS: BASOPHILS ABSOLUTE AUTO 0.07 K/mm3 (0.00-0.23); BASOPHILS PERCENT AUTO 1 % (0-2); EOSINOPHILS ABSOLUTE AUTO 0.26 K/mm3 (0.00-0.68); EOSINOPHILS PERCENT AUTO 3 % (0-6); Hematocrit 26.8 % (33.0-51.0); Hemoglobin 8.7 g/dL (11.5-16.0); IMMATURE GRAN ABSOLUTE AUTO 0.05 K/mm3 (0.00-0.10); IMMATURE GRAN PERCENT AUTO 1 % (0-1); LYMPHOCYTES ABSOLUTE AUTO 1.69 K/mm3 (0.84-5.20); LYMPHOCYTES PERCENT AUTO 16 % (21-46); MONOCYTES ABSOLUTE AUTO 1.04 K/mm3 (0.16-1.47); MONOCYTES PERCENT AUTO 10 % (4-13); Mean Corpuscular HGB 29.7 pg (26.0-34.0); Mean Corpuscular HGB Conc 32.5 g/dL (31.5-36.5); Mean Corpuscular Volume 92 fL (80-100); Mean Platelet Volume 9.3 fL (9.1-12.4); NEUTROPHILS ABSOLUTE AUTO 7.33 K/mm3 (1.96-9.15); NEUTROPHILS PERCENT AUTO 70 % (41-73); Platelet Count 196 K/mm3 (150-400); RDW Standard Deviation 52.7 fL (35.1-46.3); Red Blood Cell Count 2.93 M/mm3 (3.80-5.20); White Blood Cell Count 10.44 K/mm3 (4.00-11.30)
[2019-02-15 03:38] LABS: Anion Gap 4 mmol/L (6-16); Blood Urea Nitrogen 33 mg/dL (8-24); Bun/Creatinine Ratio 35.9 (12.0-20.0); CO2, Blood 29 mmol/L (21-32); Calcium, Blood 8.4 mg/dL (8.5-10.1); Chloride, Blood 107 mmol/L (98-108); Creatinine, Blood 0.92 mg/dL (0.40-1.00); Glomerular Filtration Rate >60 (60-); Glucose, Blood 229 mg/dL (70-99); Potassium, Blood 4.3 mmol/L (3.5-5.5); Sodium, Blood 140 mmol/L (136-145)
--- NOTE | 2019-02-15 05:49 | NUR ---
PT RESTED WELL T/O NOC. SOB, LS, AND COUGH IMPROVED AFTER TAKING OFF 02'S (CO2 RETAINER?) AND GIVING TESSELON PERLES. PT SATS 88-95% ON RA WHILE ASLEEP. PT WITH NO STOOLS THIS NOC. VOIDING USING BSC. USING CALL LIGHT OR CALLS OUT.
--- NOTE | 2019-02-15 09:24 | NUR ---
0730: CARE ASSUMED, PT ASSISTED TO BR WITH SBA WITHOUT DIFFICULTY, GAIT STEADY BUT SLIGHTLY WEAK. PT HAD A SMALL, DARK, FOUL SMELLING STOOL, NO ANAYELI BLOOD NOTED. ASSESSMENT COMPLETED, ABD SOFT, NONTENDER WITH BT IN ALL QUADS. LS WITH EXPIRATORY WHEEZES, RT AT BEDSIDE FOR NEB TREATMENT. HRR, SINUS TACH WITH MURMUR NOTED, SPO2 88-92% RA, OTHER VSS. PROTONIX 8MG/HR. PT PLEASANT, ORIENTED TO SELF AND PLACE, FORGETFUL, FOLLOWS COMMANDS, DOES NOT USE CALL LIGHT. BED ALARM ON. 0830: PT UP TO CHAIR TO EAT BREAKFAST, TOLERATED WELL WITH NO C/O ABDOMINAL PAIN OR NAUSEA. 0900: PT BACK TO BED, OCCASIONAL DRY COUGH NOTED, PT DENIES SOB, LS DIM IN BASES, NO WHEEZES NOTED AT THIS TIME, SPO2 90 - 94% RA. S/O AT BEDSIDE.
--- NOTE | 2019-02-15 10:24 | NUR ---
1020: PT SITTING AT BEDSIDE, C/O RUQ PAIN, STATES SHE HAS A GALL STONE THAT GIVES HER INTERMITTENT PAINS. TYLENOL ADMINISTERED FOR 5/10 RUQ PAIN, TESSALON ADMINISTERED FOR INTERMITTENT COUGHING. PT LYING BACK IN BED NOW, VSS, DENIES OTHER NEEDS. SO REMAINS AT BEDSIDE.
--- NOTE | 2019-02-15 13:22 | NUR ---
PT COMPLAINTS OF SEVERE ABDOMINAL PAIN. IT STARTED AT THE R SIDE OF ABDOMEN THEN IT WAS DIFFUSED PAIN ALL OVER ABDOMEN. PT STATES PAIN FEELS LIKE CRAMPING. DR. NEWELL WAS NOTIFIED. ORDERS RECEIVED.
--- NOTE | 2019-02-15 13:45 | NUR ---
1100: PT IN BED RESTING WITH EYES CLOSED, VSS AT THIS TIME. 1200: PT SITTING AT BEDSIDE TO EAT LUNCH, DENIES C/O PAIN. 1340: FENTANYL ADMINISTERED FOR RUQ AND BACK PAIN. OXYGEN PLACED AT 1.5L/NC FOR SOB AN SPO2 80% AFTER PT WAS UP TO BR, PT INSTRUCTED IN BREATHING TECHNIQUES. SPO2 UP TO 88-90% WITH OXYGEN. RT CALLED, WILL UPDATE RT WITH PT CONDITION AND CONTINUE TO MONITOR.
--- NOTE | 2019-02-15 15:57 | NUR ---
1415: PT RESTING IN BED WITH EYES CLOSED, RESPIRATIONS HAVE SLOWED AND ARE UNLABORED AT THIS TIME. HR 116, SPO2 88-90% 3L/NC, PT RESTING QUIETLY. 1500: SPO2 96%, PT SLEEPING AT THIS TIME. O2 DECREASED TO 1.5L/NC. 1550: LAB DRAWN, SPO2 93% ON 1.5L/NC, NO CHANGES MADE TO SUPPLEMENTAL OXYGEN AT THIS TIME. PT RESTING QUIETLY IN BED WITH NO C/O OF PAIN, NO AGITATION OR RESTLESSNESS NOTED. 1600: GI DOCTOR AT BEDSIDE.
[2019-02-15 16:04] LABS: Hematocrit 26.8 % (33.0-51.0); Hemoglobin 8.6 g/dL (11.5-16.0)
--- NOTE | 2019-02-15 18:01 | NUR ---
1800: PT NOW PCU STATUS PER DR. GUY. PT INCONTINENT OF URINE AND STOOL, ATTENDS AND LINENS CHANGED. PT THEN UP TO CHAIR FOR DINNER, TOLERATED FULL LIQUID DIET WITHOUT DIFFICULTY, DENIES NAUSEA OR ABDOMINAL PAIN AT THIS TIME. PT DOES REPORT SOME LOW BACK PAIN, MEDICATED WITH TYLENOL PER ORDERS. PT REMAINS UP IN CHAIR WITH FEET ELEVATED, DENIES NEEDS. PT HAD 3 SMALL/MED BLACK BM'S TODAY, NO N/V. HR AT THIS TIME 123 SINUS TACH, SPO2 93% 1.5L/NC, PT DENIES SOB, NO COUGHING NOTED. LS FINE EXP WHEEZES T/O, PT DENIES OTHER NEEDS.
--- NOTE | 2019-02-15 19:10 | NUR ---
PT SITTING IN CHAIR WATCHING TV AND RELAXING, DENIES NEEDS AT THIS TIME. REPORT TO ONCOMING NURSE.
[2019-02-15 21:34] LABS: Glucose, Blood 542 mg/dL (70-99)
--- NOTE | 2019-02-15 22:25 | NUR ---
ASSUME CARE: REPORT RECIEVED FROM JOSE OFF GOING RN. MONITOR INTACT SHOWING SINUS TACH HEART RATE 110'-120'S. . UP TO BSC WITH MINIMAL ASSIST. VOIDS CANDIDA URINE. INCONTINENT OF DARK STOOL. ATTENDS PULL UP IN PLACE. LUNG SOUNDS COARSE WITH WHEEZE AND HACKING COUGH. O2 IN PLACE AT 2L/MIN WITH SPOT CHECK SPO2 OF 95-98% DOES NOT LEAVE PROBE ON CONSISTENTLY. ABDOMEN SOFT WITH BOWEL SOUNDS FOUR QUADS. FORGETFUL AT TIMES. RESPIRATIONS REGULAR AND EASY AT REST BECOMES SHORT OF BREATH WITH ANY ACTIVITY. CO SHOULDER PAIN REQUEST LOTION OR SOMETHING TO RUB ON THEM. STATES " I NEED LOTION FOR MY FACE" OBTAINED CONTINUE TO MONITOR AND REPORT CHANGE IN PATIENT CONDITION.
[2019-02-16 04:08] LABS: BASOPHILS ABSOLUTE AUTO 0.02 K/mm3 (0.00-0.23); BASOPHILS PERCENT AUTO 0 % (0-2); EOSINOPHILS ABSOLUTE AUTO 0.01 K/mm3 (0.00-0.68); EOSINOPHILS PERCENT AUTO 0 % (0-6); Hematocrit 26.9 % (33.0-51.0); Hemoglobin 8.7 g/dL (11.5-16.0); IMMATURE GRAN ABSOLUTE AUTO 0.07 K/mm3 (0.00-0.10); IMMATURE GRAN PERCENT AUTO 1 % (0-1); LYMPHOCYTES PERCENT AUTO 4 % (21-46); MONOCYTES ABSOLUTE AUTO 0.23 K/mm3 (0.16-1.47); MONOCYTES PERCENT AUTO 2 % (4-13); Mean Corpuscular HGB 30.2 pg (26.0-34.0); Mean Corpuscular HGB Conc 32.3 g/dL (31.5-36.5); Mean Corpuscular Volume 93 fL (80-100); Mean Platelet Volume 9.8 fL (9.1-12.4); NEUTROPHILS ABSOLUTE AUTO 10.55 K/mm3 (1.96-9.15); NEUTROPHILS PERCENT AUTO 93 % (41-73); Platelet Count 220 K/mm3 (150-400); RDW Coefficient Variation 16.1 % (11.7-14.2); RDW Standard Deviation 53.2 fL (35.1-46.3); Red Blood Cell Count 2.88 M/mm3 (3.80-5.20); White Blood Cell Count 11.38 K/mm3 (4.00-11.30)
[2019-02-16 04:23] LABS: Albumin, Blood 3.4 g/dL (3.4-5.0); Anion Gap 5 mmol/L (6-16); Blood Urea Nitrogen 22 mg/dL (8-24); Bun/Creatinine Ratio 26.1 (12.0-20.0); CO2, Blood 26 mmol/L (21-32); Calcium, Blood 8.7 mg/dL (8.5-10.1); Chloride, Blood 103 mmol/L (98-108); Creatinine, Blood 0.84 mg/dL (0.40-1.00); Glomerular Filtration Rate >60 (60-); Glucose, Blood 379 mg/dL (70-99); Phosphorus, Blood 3.8 mg/dL (2.5-4.9); Potassium, Blood 4.9 mmol/L (3.5-5.5); Sodium, Blood 134 mmol/L (136-145)
--- NOTE | 2019-02-16 06:32 | NUR ---
SHIFT SUMMARY: RESTS QUIETLY FOR SHORT INTERVALS FORGETFUL MONITOR INTACT SHOWING SINUS RHYTHM/ SINUS TACH. HEART RATE 110'S-120'S. LUNG SOUNDS CLEAR/COARSE UPPER LOBES, WITH DECREASED COARSE BASESS. HARSH HACKING COUGH. ABDOMEN SOFT WITH BOWEL SOUNDS FOUR QUADS. VOIDS CANDIDA URINE PER BSC UP WITH MINIMAL ASSIST. GAIT STEADY DENIES DIZZINESS CO GENERALIZED DISCOMFORT. ATTENDS IN PLACE SECONDARY TO INCONTINENCE. TOLERATES FULL LIQUID DIET WELL. CONTINUE TO MONITOR AND REPORT CHANGE IN PATIENT CONDITION.
--- NOTE | 2019-02-16 09:01 | NUR ---
0900: TYLENOL ADMINISTERED FOR BILATERA SHOULER PAIN PER PT REQUEST. PT SITTING ON SIDE OF BED, TACHYPNEIC, AUDIBLE EXPIRAORY WHEEZES NOTED. SPO2 94% 3L/NC, RR 30'S. ATTEMPTED TO DIGITAL PROOFING AND PLATEMAKER PT IN BREATHING TECHNIQUES, UNSUCCESSFUL. RT NOTIFIED, DUONEB ADMINISTERED BY RT.
--- NOTE | 2019-02-16 11:00 | NUR ---
0930: DR GUY AT BEDSIDE, FENTANYL ADMINISTERED FOR BILATERAL SHOULDER PAIN 06/05, ICE PACKS TO SHOULDERS. METOPROLOL 5MG IVP FOR HR 150 SINUS, PT SITTING IN BED, INSTRUCTED IN BREATHING TECHNIQUES. SPO2 LOW 90'S. 0950: PT CALMING DOWN, RESPIRATIONS SLOWING TO 20'S, SPO2 >90%. ATIVAN ADMINISTERED FOR CONTINUED ANXIETY. HR 110'S SINUS, BP STABLE AFTER METOPROLOL ADMINISTERED. 1030: LIDOCAINE PATCH PLACED ON SHOULDERS, PT RESTING IN BED, VSS, AT BEDSIDE. PT REMAINS WHEEZY BUT IS CALM AT THIS TIME. 1100: HEATING PAD PLACED ON SHOULDERS FOR PAIN, PT SITTING AT BEDSIDE PER HER REQUEST. RT AT BEDSIDE TO ASSESS. PT CONTINUES TO WHEEZE, VSS.
[2019-02-16 13:10] LABS: Anion Gap 10 mmol/L (6-16); Blood Urea Nitrogen 23 mg/dL (8-24); Bun/Creatinine Ratio 27.8 (12.0-20.0); CO2, Blood 22 mmol/L (21-32); Calcium, Blood 8.9 mg/dL (8.5-10.1); Chloride, Blood 103 mmol/L (98-108); Creatinine, Blood 0.83 mg/dL (0.40-1.00); Glomerular Filtration Rate >60 (60-); Glucose, Blood 400 mg/dL (70-99); Potassium, Blood 4.5 mmol/L (3.5-5.5); Sodium, Blood 135 mmol/L (136-145)
--- NOTE | 2019-02-16 13:50 | NUR ---
Met with Deidre and her Bg, at bedside. Deidre has dementia and multiple co-morbidities brought on by age and continued smoking according to spouse. They are not taoist, but both responded well to facilitated relationship history. Both served in the [employer] dept, and both admit they've had a wonderful life. There is much love here. Bg became tearful when asked about his stress and concerns. He is clearly experiencing care-technology engineer exhaustion, and he responded well to gentle skilled nursing facility counselor and affirmation. Bg verbalizes understanding that Deidre's health and mental capacity will continue to decline. We completed a POLST for Deidre, and it is awaiting physician signature. This couple may benefit from information regarding help at home and symptom management. I will remain available.
[2019-02-16 16:19] LABS: Hematocrit 27.2 % (33.0-51.0); Hemoglobin 8.8 g/dL (11.5-16.0)
--- NOTE | 2019-02-16 17:17 | NUR ---
1200: PT CALM AND COOPERATIVE AT THIS TIME, LS HAVE IMPROVED. EXPIRATORY WHEEZES REMAIN BUT ARE NO LONGER AUDIBE. SPO2 LOW TO MID 90'S. PT ASSISTED TO BSC. BED BATH COMPLETED, PT BRUSHED TEETH, DENIES C/O AT THIS TIME. 1220: PO LOPRESSOR ADMINISTERED PER DR. JENSEN. 1400: PT MEDICTED FOR SHOULDER PAIN, NOW SITTING UP AT BESIDE VISITING WITH , PO2 94% 2L/NC, HR 110'S. PT HAS DENIED CHEST PAIN T/O DAY AND CONTINUES TO DENY. 1600: PT BRUSHED TEETH AGAIN PER HER REQUEST. DISCUSSED DM CARE WITH PT AND AYDEN. PT DENIES NEEDS OR C/O AT THIS TIME, VS. PT REMAINS FORETFUL. 1730: PT RESTING IN BED WATCHING TV, HR 116, SPO2 95% 2L, PT DENIES PAIN OR SOB AT THIS TIME. REPORT GIVEN TO AMY MCGOWAN, TO PCU ROOM 15.
--- NOTE | 2019-02-16 18:04 | NUR ---
RECEIVED REPORT AND ASSUMED CARE OF PATIENT. PT HAS PLEASANT AFFECT AND IS SITTING UP TO EAT HER DINNER AT BEDSIDE.
[2019-02-16 19:45] LABS: PCO2 Arterial 56.4 mmHg (35-45); PO2 Arterial 71.7 mmHg (80-100); pH Blood Arterial 7.25 (7.35-7.45)
--- NOTE | 2019-02-16 19:48 | NUR ---
PT HAVING INCREASED ANXIOUSNESS WHEN PREPARING FOR REPORT TO NOC NURSE. PATIENT EXPERIENCING SOB AND ANXIETY, REPORTS 10/10 PAIN. GAVE FENTYNAL AND ATIVAN PER EMAR AND CALLED CHARGE NURSE TO BEDSIDE TO ASSIST WITH PATIENT. PT CONTINUES TO HAVE INCREASED CONFUSION AND ANXIETY R/T BREATHING DIFFICULTIES. GAVE REPORT TO ROSLYN RODAS, NOC RN.
[2019-02-16 20:59] LABS: Glucose, Blood 504 mg/dL (70-99)
--- NOTE | 2019-02-16 23:46 | NUR ---
DR. MERAZ NOTIFIED OF PT CBG OF 399 AT 2345. PT TO BE KEPT NPO FOR THE NIGHT AND RECHECK PT CBG AT 0300 PT ORDER.
--- NOTE | 2019-02-17 02:15 | NUR ---
AT SHIFT START AND DURING REPORT THIS RN ENTERED PT ROOM. PT SOB AND TACHYCARDIC. RT, AND CRYPTOLOGIC LINGUIST'S RUSLAN AND TAMMY IN ROOM. PT MEDICATED PER EMAR. PROVIDER MARY ELLEN IN ROOM WELL. EKG ORDERED, SINUS TACH FOUND. PT PUT ON BIPAP, SEE RT NOTES. CONTINUING TO MONITOR.
--- NOTE | 2019-02-17 06:51 | NUR ---
SUMMARY: SEE PREVIOUS NOTES. PT STABLE THIS AM. RR RANGING 23-30 ON BIPAP, TOLERATED FOR SLEEP, BREATHING TX PRN, SEE RT NOTES. HR TRENDED DOWN SINCE SHIFT START, 115 AT THIS TIME. NO ACUTE ANXIETY. NO BM TONIGHT. CBG STABLE AT 0300. NO ACUTE CONFUSION, ALTHOUGH PT HAS BEEN FORGETFUL. BED ALARM ON FOR SAFETY, FOLLOWS COMMANDS. WILL REPORT TO DAY RN.
[2019-02-17 06:56] LABS: BASOPHILS ABSOLUTE AUTO 0.02 K/mm3 (0.00-0.23); BASOPHILS PERCENT AUTO 0 % (0-2); EOSINOPHILS PERCENT AUTO 0 % (0-6); Hemoglobin 8.5 g/dL (11.5-16.0); IMMATURE GRAN ABSOLUTE AUTO 0.18 K/mm3 (0.00-0.10); IMMATURE GRAN PERCENT AUTO 1 % (0-1); LYMPHOCYTES ABSOLUTE AUTO 0.66 K/mm3 (0.84-5.20); LYMPHOCYTES PERCENT AUTO 4 % (21-46); MONOCYTES ABSOLUTE AUTO 0.62 K/mm3 (0.16-1.47); MONOCYTES PERCENT AUTO 4 % (4-13); Mean Corpuscular HGB 29.4 pg (26.0-34.0); Mean Corpuscular HGB Conc 31.5 g/dL (31.5-36.5); Mean Corpuscular Volume 93 fL (80-100); Mean Platelet Volume 9.8 fL (9.1-12.4); NEUTROPHILS ABSOLUTE AUTO 14.16 K/mm3 (1.96-9.15); NEUTROPHILS PERCENT AUTO 91 % (41-73); Platelet Count 275 K/mm3 (150-400); RDW Coefficient Variation 16.9 % (11.7-14.2); Red Blood Cell Count 2.89 M/mm3 (3.80-5.20); White Blood Cell Count 15.64 K/mm3 (4.00-11.30)
[2019-02-17 07:06] LABS: Albumin, Blood 3.5 g/dL (3.4-5.0); Anion Gap 4 mmol/L (6-16); Blood Urea Nitrogen 29 mg/dL (8-24); Bun/Creatinine Ratio 33.6 (12.0-20.0); CO2, Blood 29 mmol/L (21-32); Chloride, Blood 105 mmol/L (98-108); Creatinine, Blood 0.86 mg/dL (0.40-1.00); Glomerular Filtration Rate >60 (60-); Glucose, Blood 254 mg/dL (70-99); Phosphorus, Blood 3.4 mg/dL (2.5-4.9); Potassium, Blood 4.6 mmol/L (3.5-5.5); Sodium, Blood 138 mmol/L (136-145)
--- NOTE | 2019-02-17 15:02 | NUR ---
BEGINNING OF SHIFT Assumed care at 0700. Report received from Mariia MCGOWAN. Pt on 6 LPM NC at start of shift, currently on 2 LPM NC. Shift assessment completed. Pt repositions in bed independently, and sits up on edge of bed independently. Continuous oximetry in place. Pt has not worn BiPAP this shift. Dr Rodrigues in to see patient. Dr Moreno in room at this time. Bed in lowest position. Call light in reach. Pt denies need at this time.
--- NOTE | 2019-02-17 16:01 | NUR ---
Echocardiogram completed.
--- NOTE | 2019-02-17 18:45 | NUR ---
SHIFT SUMMARY No acute changes since last note. Pt has not worn BiPAP this shift. Pt OOB several times to use bedside commode. Tolerating activity well. Pt on 1 LPM NC. Will continue to closely monitor until care handoff and bedside report with oncoming RN.
--- NOTE | 2019-02-18 04:39 | NUR ---
SHIFT SUMMARY THE PT ADMITTED FOR GI BLEED. DNR. CARDIAC, ADA DIET. TELE-SINUS TACH 109. CBG AT AC AND HS. 20G IV TO L FA. 1L O2 VIA NC. 1 PERSON ASSIST TO BSC. TAKES MEDICATIONS WHOLE. THE PT PRESENTED TO THE ED WITH C/O BLOOD IN STOOL WITH BLACK TARRY STOOLS. THE PT WITH A KNOWN HX OF GI BLEED WITH HEMORRHAGIC SHOCK IN NOV. THE PT HAD AN ANGIOECTASIA WITH A CLIP. PT GI STATUS APPEARS NOW TO BE STABLE. 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 THE PT HAS NOT APPEARS TO SLEEP THIS NIGHT. THE PT INITIALLY AGREED TO HAVE BIPAP PLACED BY RT BUT QUICKLY DECIDED THAT SHE COULD NOT TOLLERATE THE MASK. THE PT ASKED FOR IT TO BE REMOVED. THE PT ALSO REFUSED TO WEAR SCDS. THE PT IS CURRENTLY SITTING UP IN BED WATCHING THE NEWS. NO APPARENT SIGNS OF ACUTE DISTRESS. ABLE TO MAKE NEEDS KNOWN AND CALL LIGHT IN REACH.
[2019-02-18 08:45] LABS: BASOPHILS ABSOLUTE AUTO 0.02 K/mm3 (0.00-0.23); BASOPHILS PERCENT AUTO 0 % (0-2); EOSINOPHILS PERCENT AUTO 0 % (0-6); Hematocrit 28.1 % (33.0-51.0); Hemoglobin 8.7 g/dL (11.5-16.0); IMMATURE GRAN ABSOLUTE AUTO 0.16 K/mm3 (0.00-0.10); IMMATURE GRAN PERCENT AUTO 1 % (0-1); LYMPHOCYTES ABSOLUTE AUTO 0.72 K/mm3 (0.84-5.20); LYMPHOCYTES PERCENT AUTO 5 % (21-46); MONOCYTES ABSOLUTE AUTO 0.78 K/mm3 (0.16-1.47); MONOCYTES PERCENT AUTO 6 % (4-13); Mean Corpuscular HGB 30.1 pg (26.0-34.0); Mean Platelet Volume 9.6 fL (9.1-12.4); NEUTROPHILS ABSOLUTE AUTO 12.19 K/mm3 (1.96-9.15); NEUTROPHILS PERCENT AUTO 88 % (41-73); Platelet Count 281 K/mm3 (150-400); RDW Coefficient Variation 17.4 % (11.7-14.2); RDW Standard Deviation 56.5 fL (35.1-46.3); Red Blood Cell Count 2.89 M/mm3 (3.80-5.20); White Blood Cell Count 13.87 K/mm3 (4.00-11.30)
[2019-02-18 08:48] LABS: Mean Corpuscular Volume 97 fL (80-100)
[2019-02-18 09:08] LABS: Anion Gap 5 mmol/L (6-16); Blood Urea Nitrogen 36 mg/dL (8-24); CO2, Blood 28 mmol/L (21-32); Calcium, Blood 8.6 mg/dL (8.5-10.1); Chloride, Blood 105 mmol/L (98-108); Glomerular Filtration Rate >60 (60-); Glucose, Blood 282 mg/dL (70-99); Potassium, Blood 4.2 mmol/L (3.5-5.5); Sodium, Blood 138 mmol/L (136-145)
--- NOTE | 2019-02-18 11:59 | NUR ---
BEGINNING OF SHIFT Assumed care of pt at 0700. Report recieved from Jaleel MCGOWAN. Pt on BiPAP at beginning of shift. Pt removed BiPAP. Placed on 2 LPM NC. Tolerating time off BiPAP well. Continuous oximetry in place. Pt mobilizes with standby assist. Bed in lowest position. Call light in reach. Pt denies need at this time.
--- NOTE | 2019-02-18 19:03 | NUR ---
SHIFT SUMMARY No acute changes since shift assessment. Pt on 2 LPM NC for entire shift. Pt did not want to wear BiPAP. Pt mobilized into bathroom for shower. Tolerated activity well. Plan of care discussed with Dr Moreno and pt. Pt transferred to room 357. Report given to day medical floor nurse, Marybeth MCGOWAN. Pt transferred via wheelchair accompanied by vish RN and Vonda GARCIA.
--- NOTE | 2019-02-19 05:47 | NUR ---
SHIFT SUMMARY PT TRANSFERED AT CHANGE OF SHIFT FROM PCU TO MED FLOOR. PT HAS BEEN YELLING OUT THE ENTIRE NIGHT, STATING THAT STAFF ARE NOT CHECKING ON HER AND STATING THAT SHE IS HAVING DIFFICULTY BREATHING. RT IN TO SEE PT MULTIPLE TIMES THROUGHOUT THE NIGHT, PT WITH C/O COUGH, MEDICATED PER EMAR. MEDICATED FOR ANXIETY, NOTHING APPEARED TO BE EFFECTIVE. PT STATED THAT SHE DID NOT WANT TO SWITCH TO A DIFFERENT ROOM AND THAT NOW SHE IS MORE SICKS BECAUSE WE MOVED HER. NO ACUTE CHANGES NOTED FROM LAST NIGHT. NO APPARENT SIGNS OF ACUTE DISTRESS. ABLE TO MAKE NEEDS KNOWN AND CALL LIGHT IN REACH.
--- NOTE | 2019-02-19 17:49 | NUR ---
SUMMARY PT SITTING UP AT THE EDGE OF THE BED EATING HER DINNER AND VISITING WITH HER S.O., PT HAS BEEN PLEASANT AND COOPERATIVE WITH CARE, MED PER EMAR FOR COUGH SEVERAL TIMES AND ANXIETY ONCE, PT HAD A HOME O2 MD BLADIMIR STILL NEEDS TO SIGN ORDER FORM, VSS, NO ACUTE CHANGES, WILL CONT TO MONITOR
--- NOTE | 2019-02-20 05:48 | NUR ---
SHIFT SUMMARY PT SLEPT FAIR DURING THE NIGHT. HAD COUGH THAT WOKE HER UP, CEPACOL LOZENGE GIVEN. NO ACUTE EVENTS NOTED DURING THE NIGHT. WILL CONTINUE TO MONITOR.
[2019-02-20 08:37] LABS: BASOPHILS ABSOLUTE AUTO 0.01 K/mm3 (0.00-0.23); BASOPHILS PERCENT AUTO 0 % (0-2); EOSINOPHILS ABSOLUTE AUTO 0.24 K/mm3 (0.00-0.68); EOSINOPHILS PERCENT AUTO 2 % (0-6); Hemoglobin 9.1 g/dL (11.5-16.0); IMMATURE GRAN PERCENT AUTO 1 % (0-1); LYMPHOCYTES ABSOLUTE AUTO 1.73 K/mm3 (0.84-5.20); LYMPHOCYTES PERCENT AUTO 13 % (21-46); MONOCYTES ABSOLUTE AUTO 1.49 K/mm3 (0.16-1.47); MONOCYTES PERCENT AUTO 11 % (4-13); Mean Corpuscular HGB 29.9 pg (26.0-34.0); Mean Corpuscular HGB Conc 31.4 g/dL (31.5-36.5); Mean Corpuscular Volume 95 fL (80-100); Mean Platelet Volume 9.4 fL (9.1-12.4); NEUTROPHILS ABSOLUTE AUTO 9.79 K/mm3 (1.96-9.15); NEUTROPHILS PERCENT AUTO 73 % (41-73); Platelet Count 313 K/mm3 (150-400); RDW Coefficient Variation 17.1 % (11.7-14.2); RDW Standard Deviation 58.2 fL (35.1-46.3); Red Blood Cell Count 3.04 M/mm3 (3.80-5.20); White Blood Cell Count 13.36 K/mm3 (4.00-11.30)
[2019-02-20 09:03] LABS: Albumin, Blood 3.2 g/dL (3.4-5.0); Anion Gap 6 mmol/L (6-16); Blood Urea Nitrogen 30 mg/dL (8-24); Bun/Creatinine Ratio 34.1 (12.0-20.0); CO2, Blood 32 mmol/L (21-32); Calcium, Blood 8.5 mg/dL (8.5-10.1); Chloride, Blood 107 mmol/L (98-108); Creatinine, Blood 0.88 mg/dL (0.40-1.00); Glomerular Filtration Rate >60 (60-); Glucose, Blood 50 mg/dL (70-99); Phosphorus, Blood 4.6 mg/dL (2.5-4.9); Potassium, Blood 3.3 mmol/L (3.5-5.5); Sodium, Blood 145 mmol/L (136-145)
[2019-02-20] MEDS ORDERED: BENZ100A PO (11:04)
[2019-02-20] MEDS ORDERED: CEFU500T30 PO (11:05)
[2019-02-20] MEDS ORDERED: LIDO700A20 TOP (11:06)
[2019-02-20] MEDS ORDERED: HUMALOG KW200 UNIT/1 (11:08)
[2019-02-20] MEDS ORDERED: Nicoderm Cq1 EAC1 TOP (11:09)
[2019-02-20] MEDS ORDERED: PRED20 PO (11:12)
--- NOTE | 2019-02-20 13:40 | NUR ---
DISCHARGE DISCHARGE MEDICATIONS AND INSTRUCTIONS EXPLAINED TO PATIENT AND PATIENT'S . THEY STATED UNDERSTANDING. IV REMOVED WITHOUT DIFFICULTY. RODO MET WITH TIESHA TO PROVIDE HOME OXYGEN AND PORTABLE OXYGEN. BELONGINGS WITH PATIENT. PATIENT TRANSFERED TO PRIVATE VEHICLE VIA WHEELCHAIR.
== END 2019-02-20 13:23 | disposition home or self-care (01) | DRG 377 ==
LOC: ER 10:27 → ICUE 14:15 → PCU 14:15 → ICUE 15:40 → PCU 02-16 18:00 → MEDS 02-18 19:00 → ENPENDDIS 02-20 10:59 → MEDS 02-20 13:23
PROVIDERS: Internal Medicine Critical Care Medicine; Nurse Practitioner Acute Care; Physician Assistant; Student in an Organized Health Care Education/Training Program; ADMIT Internal Medicine
PROC: 0W3P8ZZ Control Bleeding in Gastrointestinal Tract, Via Natural or Artificial Opening Endoscopic (ICD-10-PCS; principal; 2019-02-14 16:00)
PROC: 3E0G8GC Introduction of Other Therapeutic Substance into Upper GI, Via Natural or Artificial Opening Endoscopic (ICD-10-PCS; 2019-02-14 16:00)
PROC: 30233N1 Transfusion of Nonautologous Red Blood Cells into Peripheral Vein, Percutaneous Approach (ICD-10-PCS; 2019-02-14 16:00)
DX: K55.21 Angiodysplasia of colon with hemorrhage (principal); J96.20 Acute and chronic respiratory failure, unspecified whether with hypoxia or hypercapnia; R57.9 Shock, unspecified; J44.1 Chronic obstructive pulmonary disease with (acute) exacerbation; J44.9 Chronic obstructive pulmonary disease, unspecified; E11.9 Type 2 diabetes mellitus without complications; Z79.4 Long term (current) use of insulin; F03.90 Unspecified dementia, unspecified severity, without behavioral disturbance, psychotic disturbance, mood disturbance, and anxiety; F17.210 Nicotine dependence, cigarettes, uncomplicated; G30.9 Alzheimer's disease, unspecified; F02.80 Dementia in other diseases classified elsewhere, unspecified severity, without behavioral disturbance, psychotic disturbance, mood disturbance, and anxiety; D64.9 Anemia, unspecified; I48.91 Unspecified atrial fibrillation; G47.00 Insomnia, unspecified; Z66 Do not resuscitate
CPT/HCPCS: 36415; 36430; 36600; 71045; 71046; 80048; 80053; 80069; 82272; 82803; 82947; 83735; 83880; 85014; 85018; 85025; 85610; 85730; 86850; 86900; 86901; 86923; 93005; 93010; 93306; 94640; 94660; 94760; 94761; 94762; 96361; 96365; 96366; 96376; 99285-25; C9113; J0171; J0696; J1430; J2060; J2405; J2704; J2920; J2930; J3010; J7030; J7050; J7120; J7512; P9016; Q9968

== ENCOUNTER 2019-04-20 11:21 | Inpatient (IN) | payer MEDICARE, OTHER ==
[~2019-04-20] VITALS: Ht 157.5 cm; Wt 70.1 kg
[~2019-04-20 11:21] MED LIST changes: +ACET500 PO; +BENZ100A PO; +CEFU500T30 PO; +DICLOFENAC SOD100 G1 TOP; +Dyazide 37.5-21 EACH PO; +LIDO700A20 TOP; +MELA3 PO; +Mirtazapine7.5 MG PO; +NOVOLOG FL100 UNIT/1 SC; +Nicoderm Cq1 EAC1 TOP; +PRED20 PO
[2019-04-20 11:56] LABS: BASOPHILS ABSOLUTE AUTO 0.07 K/mm3 (0.00-0.23); BASOPHILS PERCENT AUTO 1 % (0-2); EOSINOPHILS ABSOLUTE AUTO 0.38 K/mm3 (0.00-0.68); EOSINOPHILS PERCENT AUTO 4 % (0-6); Hematocrit 27.4 % (33.0-51.0); Hemoglobin 8.1 g/dL (11.5-16.0); IMMATURE GRAN ABSOLUTE AUTO 0.04 K/mm3 (0.00-0.10); IMMATURE GRAN PERCENT AUTO 0 % (0-1); LYMPHOCYTES ABSOLUTE AUTO 1.08 K/mm3 (0.84-5.20); LYMPHOCYTES PERCENT AUTO 12 % (21-46); MONOCYTES ABSOLUTE AUTO 0.88 K/mm3 (0.16-1.47); MONOCYTES PERCENT AUTO 10 % (4-13); Mean Corpuscular HGB 27.4 pg (26.0-34.0); Mean Corpuscular HGB Conc 29.6 g/dL (31.5-36.5); Mean Corpuscular Volume 93 fL (80-100); Mean Platelet Volume 9.2 fL (9.1-12.4); NEUTROPHILS PERCENT AUTO 73 % (41-73); Platelet Count 327 K/mm3 (150-400); RDW Coefficient Variation 16.2 % (11.7-14.2); RDW Standard Deviation 55.2 fL (35.1-46.3); Red Blood Cell Count 2.96 M/mm3 (3.80-5.20); White Blood Cell Count 9.05 K/mm3 (4.00-11.30)
[2019-04-20 12:12] LABS: Alanine Aminotransfer (ALT/SGP 14 U/L (12-78); Albumin, Blood 3.6 g/dL (3.4-5.0); Albumin/Globulin Ratio 0.9 (0.8-1.8); Alk Phos 74 U/L (50-136); Anion Gap 6 mmol/L (6-16); Aspartate Aminotrans (AST/SGOT 11 U/L (12-37); Bilirubin, Total 0.8 mg/dL (0.1-1.0); Blood Urea Nitrogen 20 mg/dL (8-24); Bun/Creatinine Ratio 22.5 (12.0-20.0); CO2, Blood 26 mmol/L (21-32); Calcium, Blood 9.1 mg/dL (8.5-10.1); Chloride, Blood 106 mmol/L (98-108); Creatinine, Blood 0.89 mg/dL (0.40-1.00); Globulin, Blood 4.2 g/dL (2.2-4.0); Glomerular Filtration Rate >60 (60-); Glucose, Blood 179 mg/dL (70-99); Potassium, Blood 4.2 mmol/L (3.5-5.5); Sodium, Blood 138 mmol/L (136-145); Total Protein, Blood 7.8 g/dL (6.4-8.2); Troponin I <0.015 ng/mL (0.000-0.040)
--- NOTE | 2019-04-20 16:07 | NUR ---
ORIENTED TO ROOM AND FREQUENT ROUNDING EXPLAINED. BED LOW AND IN LOCKED POSITION. SIDE RAILS UP X3. CALL LIGHT AND PHONE WITHIN REACH. BED LOW AND IN LOCKED POSITION.
--- NOTE | 2019-04-20 18:56 | NUR ---
Met with patient and . Patient was able to answer some questions and track part of conversation but repeats and difficulty tracking. Pt sitting up aduible wheezes. has some chronic back pain. states she has struggled with sleep due to aggitaion and dyspnea. The both describe increasing bouts of air hunger and respitory stress. Difficult to differntiate if related partly to aggitation. pt aggitatied at times and speaks rapidly. He is struggling with managing her care but having a tough time letting in help. He has went to a few alzheimers meetings. we reviewed their life and care needs. pt and her both worked for the [employer]. 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 He is struggling with not being able to manage and control his life like he used to . He expressed great frustration with medical care and equipment.He was also frustrated about mastering houme care and showing some director of patient care stress. Pt stated that they have been approached about hospice. briefly reviewed what hospice can offer when ready. Pt is seeing doctor Linton and dr Gallardo. They had trouble filling her neuro meds due to mcfp of physician. Pt avoided answering if careing for her at home was getting more difficult. Will have chaplian see him for grief and stress. pt FAST scale is 6b. Her PPS scale is 50% due to respitory disease.
--- NOTE | 2019-04-20 19:25 | NUR ---
patient resting in bed, denies pain at this time, but is SOB/wheezy. called RT for breathing treatment. #20 LAC SL c/d/i. call walker within reach.
--- NOTE | 2019-04-20 22:15 | NUR ---
5010: SPOKE TO MUSICAL STRING MAKER MARY ELLEN REGARDING PATIENT WEISS, FREEQUENT EPUISODES OF ANXIETY RE;ATED TO RESPIRATORY DISTRESS. ALSO REPORTED POC FSBS OF 404; PATIENT GIVEN 18U OF HI DOSE SSI. PER RECHECK IN AN HOUR AND REPORT RESULT. INSTRUCTION IS TO TITRATE O2 BACK TO 1 L AND MONITOR DISTRESS LEVEL AND REPORT RESULT. ADVISED RT OF SAME. WILL CONTINUE TO MONITOR
--- NOTE | 2019-04-21 00:17 | NUR ---
REPORTED FSBS RECHECK RESULT = [address] KARIMI CHANGE BS CHECKS TO Q6
--- NOTE | 2019-04-21 17:37 | NUR ---
SHIFT SUMMARY PT WITH SOB WITH ANY EXERTION. MAINTAINING SATS ON 1L/M DESPITE SIGNIFICANT SOB WITH ANY EXERTION. XANAX GIVEN FOR ANXIETY THIS MORNING AND PT TOOK A GOOD NAP. AT BEDSIDE ON AND OFF THROUGH DAY. STARTED COMPLAINING OF R UPPER QUADRANT DISCOMFORT THIS AFTERNOON THAT REPORTS SHE HAS HAD ON AND OFF FOR SEVERAL YEARS DUE TO A LARGE GALLSTONE THAT OCC BLOCKS AND CAUSES PAIN. SHE IS TO BE INFORMED TO LAY ON HER LEFT SIDE TO HELP MOVE STONE AWAY FROM TUBE AND DECREASE PAIN. PT BREATHING IN THE LOW 20-S BUT DOESN'T APPEAR DISTRESSED UNLESS SHE IS EXERTING HERSELF.
--- NOTE | 2019-04-21 19:37 | NUR ---
Assumed care of patient. Ultrasound completed. No change from previous imaging. Patient sitting in bed RT in room. gave pain med per order and encouraged her to lay on her side. will continue to monitor
--- NOTE | 2019-04-22 15:11 | NUR ---
HAS BEEN SITTING UP IN CHAIR OR SIDE OF BED MOST OF DAY VISITING WITH FAMILY AND HASN'T APPEARED TO HAVE RESP DISTRESS WITH VISITNG. STATES SHE FEELS MUCH BETTER. REPORT GIVEN TO JOSE MCGOWAN.
--- NOTE | 2019-04-22 17:37 | NUR ---
SHIFT SUMMARY ASSUMED CARE OF PATIENT THIS AFTERNOON. PATIENT DENIES PAIN, NAUSEA, AND SHORTNESS OF BREATH. PATIENT UP IN CHAIR OR SITTING BEDSIDE. AT BEDSIDE. CALL LIGHT IN REACH, WILL CONTINUE TO MONITOR.
--- NOTE | 2019-04-22 20:32 | NUR ---
1929: ASSUMED CARE OF PATIENT; PATIENT ANXIOUS AND CALLING OUT FOR HELP; PATIENT FEELS LIKE SHE CANT BREATHE. RT CALLED AND PATIENT RECIEVED BREATHING TREATMENT. ANTI-ANXIETY MED GIVEN BY DAY RN. 2032: POC FSBS = 415; 18 UNITS HUMALOG GIVEN PER EMAR AND NOTIFIED PROVIDER. GAVE BEDTIME MEDS AND COUGH MEDS PER EMAR.
--- NOTE | 2019-04-23 11:09 | NUR ---
Pt's came to palliative care office this AM. He requested for palliative care to come talk with him and Pt regarding hospice. Pt is sitting on the edge of the bed leaning over the bedside table in the tripod position. Pt denies pain and anxiety at this time. She also denies dyspnea but appears SOB as evidenced by tripod position, and use of accessory muscles. Wet moist breathing noted. Pt becomes more dyspneic when speking. Engaged in therapeutic discussion regrding disease process. Discussed hospice as an option and Pt expresses interest. Educated Pt and on hospice philosophy. Pt and are agreeable and choose hospice upon discharge. Instructed on hospice agencies available. No other concerns reported at this time. Spoke with critical care physician assistant Klaudia regarding Pt's decision for hospice upon discharge. Spoke with Dr Alexandre prior to Pt visit and she reports conversation regarding hospice is appropriate and is considering ordering further testing. PPS 40% Karnofsky 40% ADLs 4/6 NYHA Class 4 reports at baseline Pt uses furniture to assist with mobility Plan will place hospice referral and palliative care will remain available stability and becomes SOB within 10 to 15 feet of ambulation requiring rest.
--- NOTE | 2019-04-23 18:34 | NUR ---
SUMMARY- PT ALERT TO SELF AND PLACE, CONFUSED AT TIMES, MILD CONFUSION. ABLE TO USE CALL LIGHT. LUNGS WITH COARSE T/O, INTERMITTENT PERIODS OF DYSPNEA. HAVE LIMITED ACTIVITY TO BSC, AND UP TO CHAIR FOR LUNCH AND DINNER. PT HAD ONE ANXIETY DYSPNIC EPISODE THIS PM, GIVEN ZANAX AND SAT UPFIGHT AT EDGE OF BED, LEANING FORWARD ONTO TABLE, ABLE TO REGAIN BREATING COMFORTABLY AFTER ABOUT 5 MINUTES OF COACHING AND REASURANCE AND ASSIST WITH POSTURE. HERE FOR HALF OF THE DAY, ACTIVE IN PT'S CARE. PT TOLERATING FOOD AND FLUIDS, HUNGRY FOR EVERY MEAL. BLOOD SUGARS 200-250, USING SSI AND 10UNITS REG WITH EACH MEAL.
--- NOTE | 2019-04-23 20:48 | NUR ---
SNACK GIVEN TO PT.
--- NOTE | 2019-04-24 01:12 | NUR ---
PT RESTING QUIETLY. BED ALARM ON. CALL LT IN REACH.
--- NOTE | 2019-04-24 02:13 | NUR ---
PT SITTING ON SIDE OF BED DURING BREATHING TREATMENT. CALL LT IN REACH.
--- NOTE | 2019-04-24 04:21 | NUR ---
SHIFT SUMMARY: PT CONTINUES TO HAVE SOB WITH ANY ACTIVITY. ON 2L VIA NC. LS COARSE T/O. IMPULSIVE AT TIMES AND SETS BED ALARM OFF. HX OF DEMENTIA. PT PREFERS TO USE THE BATHROOM INSTEAD OF BSC. PT RESTED WELL T/O SHIFT. NO ACUTE CHANGES. WILL CONTINUE TO MONITOR AND PROVIDE CARE UNTIL SHIFT REPORT.
--- NOTE | 2019-04-24 06:33 | NUR ---
XANAX GIVEN FOR PT'S ANXIETY. PT WAS PANICKY, UNABLE TO BREATHE PER PT. RT HAD GIVEN PT A BREATHING TREATMENT BUT PT WAS HAVING A HARD TIME RECOVERING. PT TOOK PILL WITHOUT DIFFICULTY. WILL MONITOR.
--- NOTE | 2019-04-24 18:05 | NUR ---
SHIFT SUMMARY: NO ACUTE CHANGES TO REPORT THIS SHIFT. PT HX DEMENTIA; A&O; CALM AND COOPERATIVE WITH CARE. SOB c EXERTION; O2 @ 2L; RT FOLLOWING. SBA c FWW TO BATHROOM. HOSPICE CONSULT THIS SHIFT. LUCAS.
--- NOTE | 2019-04-24 18:41 | NUR ---
Reviewed care with and hospice. Review of comfort care and may be best to transition if she get more shor of breath reviewed with nursing. At this point updated friday will be a day of planning and we will keep doing same care. He chose [facility]. Theraputic conversation with patient in form of he is crying more and showing more grief and fatigue. supportive conversation with him. Gave pt a back rub and bath. is distraught that she is more incontinent. will notify care managers.
[2019-04-25 04:56] LABS: BASOPHILS ABSOLUTE AUTO 0.02 K/mm3 (0.00-0.23); BASOPHILS PERCENT AUTO 0 % (0-2); EOSINOPHILS PERCENT AUTO 0 % (0-6); Hematocrit 26.3 % (33.0-51.0); Hemoglobin 7.6 g/dL (11.5-16.0); IMMATURE GRAN ABSOLUTE AUTO 0.19 K/mm3 (0.00-0.10); IMMATURE GRAN PERCENT AUTO 1 % (0-1); LYMPHOCYTES ABSOLUTE AUTO 0.62 K/mm3 (0.84-5.20); LYMPHOCYTES PERCENT AUTO 4 % (21-46); MONOCYTES ABSOLUTE AUTO 0.68 K/mm3 (0.16-1.47); MONOCYTES PERCENT AUTO 5 % (4-13); Mean Corpuscular HGB 25.9 pg (26.0-34.0); Mean Corpuscular HGB Conc 28.9 g/dL (31.5-36.5); Mean Platelet Volume 9.3 fL (9.1-12.4); NEUTROPHILS ABSOLUTE AUTO 13.35 K/mm3 (1.96-9.15); NEUTROPHILS PERCENT AUTO 90 % (41-73); Platelet Count 386 K/mm3 (150-400); RDW Coefficient Variation 16.1 % (11.7-14.2); RDW Standard Deviation 52.8 fL (35.1-46.3); Red Blood Cell Count 2.93 M/mm3 (3.80-5.20); White Blood Cell Count 14.86 K/mm3 (4.00-11.30)
[2019-04-25 04:58] LABS: Mean Corpuscular Volume 90 fL (80-100)
--- NOTE | 2019-04-25 16:00 | NUR ---
PAL CARE VISIT. Met with pt, , pt's RN in room. Another family member was present but not participatory in the conversation. Pt was on the phone for the first few minutes of my visit. Time spent answering 's questions and concerns related to d/c home with hospice and whether PT would be helpful. He reports talking with about PT this am and understood that it would be ordered. We discussed the purpose would be more for caregiver training and safety with transfers and mobility than PT for rehab purposes. Pt becomes very dyspnic with any exertion due to her aortic stenosis/deconditioning. RN to call Dr and discuss further and obtain order if Dr feels PT is appropriate. I do recommend hospice PT for home eval, caregiver training and safety as well as DELIVERY CREW WORKER for researching additional care/resources for respite. Pt's states he will be the only caregiver in the home outside of Hospice staff and rn case manager hospice for personal care. We discussed obtaining a gait belt for safety with transfers and that they would probably need a O2, BSC, and hospital bed thru hospice. I told I would leave a report for care managers on Friday that he is normally in early in the am and then again later in the day. He would like to meet with CM and HOspice VINNY to discuss and plan other needs. He is concerned about transporting pt home in his car if she remains so dyspnic with activity. We discussed measures to manage that as well as WC or gurney transport home, depending on what pt's status was on the day of discharge and that this would be discussed and arranged by Hospice or care management at that time. Once pt was off the phone I spoke to her about her symptoms. She is smiling and states it's been a good day. She and her state she has not had pain. She denies nausea or anxiety. Pt has dementia and is pleasantly confused about the circumstances of her hospitalization. She does not exhibit nonverbal indicators of pain, anxiety or distress at this time. VM left for Care management department re: all of above and new Hospice order over the weekend.
--- NOTE | 2019-04-25 19:24 | NUR ---
SHIFT SUMMARY: NO ACUTE CHANGES TO REPORT THIS SHIFT. PT HX DEMENTIA; ORIENTED TO SELF, FAMILY, AND SITUATION. NO C/O PAIN THIS SHIFT. 2L O2 VIA NC; ATTEMPTED TITRATION; PT RESPONDED POORLY-SATS IN 80s ON ROOM AIR. PT EVAL & TREAT PRIOR TO D/C TO HOME c HOSPICE-EXPECTED D/C FRIDAY 04/27. REPORT GIVEN TO ONCOMING RN.
--- NOTE | 2019-04-26 05:09 | NUR ---
Elderly Female appears younger than actual age continues on oxygen for copd and lung cancer. she is pleasantly confused less impulsive behavior. Able to ambulate unassisted to bathroom and is more aware of oxygen tubing. Fall precautions continue. Continues on IV steroids. PRN cough meds given with helpful effect. Planning to DC home with Spouse Friday on Hospice. PT's Spouse also uses oxygen . Denies pain or acute distress.
--- NOTE | 2019-04-26 08:52 | NUR ---
NOTIFIED DR. DELONG PT'S BLOOD SUGAR [address] DELONG PT ON HIGH SLIDING SCALE WITH ADDITIONAL 10 UNITS OF HUMALOG SCHEDULED THIS AM AND [address] DELONG SAID TO HOLD LANTUS AND [address] DELONG SAID TO SWITCH PT TO MEDIUM SLIDING SCALE. NO OTHER NEW ORDERS AT THIS TIME.
--- NOTE | 2019-04-26 12:08 | NUR ---
NOTIFIED DR. DELONG PT'S BLOOD SUGAR [address] DELONG SAID TO SWITCH PT TO LOW SLIDING SCALE AND GIVE THE ADDITIONAL SCHEDULED [address]. [address] DELONG PT'S IV LEAKING AND PT RECIEVING IV SOLUMEDROL BID. PT TO D/C ON HOSPICE TOMORROW. DR. VELÁSQUEZ SAID OK TO PUT ORDER IN FOR NO IV ACCESS. NO OTHER NEW ORDERS AT THIS TIME.
--- NOTE | 2019-04-26 15:05 | NUR ---
Pt visit this afternoon. Pt resting in bed and appears comfortable. Pt's present during visit. Pt denies pain at this time. She reports mild dyspnea. Listened as explained plan for Pt to discharge home tomorrow and hospice will be at the home on . Pt and report no concerns at this time. Palliative Care will remain available.
--- NOTE | 2019-04-26 17:14 | NUR ---
SHIFT SUMMARY- AXO X3. PT DENIES PAIN. DENIES SOB AT REST. RESP E/U ON 2L O2 NC. DYSPNEA UPON EXERTION. DENIES N/V. SBA TO THE BATHROOM. PT'S SPOUSE IN TO VISIT THIS AM AND AFTERNOON. PLAN IS TO D/C HOME TOMORROW ON HOSPICE. NO OTHER SIGNIFICANT CHANGES THIS SHIFT.
--- NOTE | 2019-04-27 05:46 | NUR ---
SHIFT SUMMARY: ASAF WAS COOPERATIVE AND PLEASANT SHE DID HAVE SOME FORGETFULNESS THROUGHOUT THE NIGHT, GOT VERY UNSTEADY AND INCREASE IN SOB FROM EXHAUSTION. SHE GOT COLD THEN LATER GOT TO WARM. SHE DID NOT COMPLAIN OF SOB OR PAIN. ONLY GOT UP TO GO TO THE BATHROOM BUT WAS EASILY RE-DIRECTED EACH TIME. LUNG SOUNDS WERE STILL WHEEZES WITH COURSE DIMINISHED SOUNDS. COUGH LOOSE BUT NON-PRODUCTIVE. ENCOURAGED HER TO DEEP BREATH AND COUGH. OVER ALL SHE HAD NO FURTHER ACUTE CHANGES. WILL REPORT TO DAY SHIFT RN.
[2019-04-27] MEDS ORDERED: ALBU2.5V5 NEB (14:43)
--- NOTE | 2019-04-27 15:17 | NUR ---
SUMMARY/DISCHARGE PT DISCHARGED TO HOME ON HOSPICE, [facility] PRES[facility]ED INCOME HAS SET UP DISCHARGE, TRANSPORTATION HERE AT 3PM WITH [facility], PT'S SPOUSE AT THE BEDSIDE, PT TAKEN OUT SAFELY VIA WHEELCHAIR SAFELY
== END 2019-04-27 15:09 | disposition hospice, home (50) | DRG 189 ==
LOC: ER 11:21 → MEDS 11:22 → ENPENDDIS 04-27 14:51 → MEDS 04-27 15:09
PROVIDERS: Emergency Medicine; Hospitalist; ADMIT Internal Medicine
DX: J96.01 Acute respiratory failure with hypoxia (principal); J44.1 Chronic obstructive pulmonary disease with (acute) exacerbation; I48.2 Chronic atrial fibrillation; I50.9 Heart failure, unspecified; F03.90 Unspecified dementia, unspecified severity, without behavioral disturbance, psychotic disturbance, mood disturbance, and anxiety; I35.0 Nonrheumatic aortic (valve) stenosis; F17.210 Nicotine dependence, cigarettes, uncomplicated; Z79.4 Long term (current) use of insulin; Z90.2 Acquired absence of lung [part of]; Z66 Do not resuscitate
CPT/HCPCS: 36415; 71046; 76705; 80053; 82947; 84484; 85025; 93005; 93010; 94640; 94760; 96374; 97116; 97162; 97530; 99285-25; A9270; J1650; J1815; J1940; J2920; J2930; J3010